=== PATIENT | male | born 1965 | race Caucasian/White ===

== ENCOUNTER 2023-11-14 16:46 | Emergency (ER) | payer BC, SELFPAY ==
--- NOTE | ~2023-11-14 | CT_ITS ---
EXAMINATION: CT SOFT TISSUE NECK WITH CONTRAST CLINICAL INFORMATION: Difficulty swallowing, concern for abscess COMPARISON: None. TECHNIQUE: Following the administration of 85 mL of Omnipaque 350 intravenous contrast, helical imaging was performed in the axial plane with generation of coronal and sagittal reformatted images. This CT examination was performed using dose optimization techniques as appropriate, variously including the following: *Automated exposure control. *Adjustment of mA and/or kV according to patient size (this includes techniques or standardized protocols for targeted exams where dose is matched to indication/reason for exam; i.e. extremities or head). *Use of iterative reconstruction technique. DLP: 381 mGy-cm. FINDINGS: There is asymmetric enlargement and heterogeneous hyperenhancement of the left palatine tonsil suggestive of acute palatine tonsillitis. There is a thinly septated, lobulated peripherally enhancing fluid collection suspicious for a left peritonsillar abscess effacing the left glossotonsillar sulcus, inferior left parapharyngeal fat, and extending to the left base of tongue, measuring 2.9 x 2.6 x 3.1 cm. There is soft tissue thickening and enhancement along the left lateral oropharyngeal wall and left nasopharyngeal soft tissues, compatible with pharyngitis. Pharyngitis/phlegmon largely effaces the left vallecula. The abscess causes mass effect and rightward displacement of an edematous soft palate. There is mild narrowing of the oropharyngeal airway. Myositis and phlegmon along the left posterior floor of mouth. There is stranding/cellulitic changes within the left submandibular triangle, anterior cervical space, and left carotid space with asymmetric thickening of the left platysma. The left submandibular gland is enlarged and edematous suggestive of secondary sialoadenitis. Asymmetric increased number of reactive nonpathologic size criteria left cervical chain lymph nodes. Medialization of the right aryepiglottic fold with prominence of the right piriform sinus and right lateral ventricle can be correlated for right-sided vocal cord paresis/paralysis. Dependent retention cysts in the maxillary sinuses and left sphenoid sinus. No mastoid effusion. The temporomandibular joints are normal. The right submandibular and parotid glands are normal. The thyroid gland is normal. Partially imaged centrilobular and paraseptal emphysema. Normal opacification of the major neck vessels. Mild cervical spondylosis. The imaged portions of the brain parenchyma are unremarkable. 6 mm exophytic dermal-based lesion arising from the left supraorbital frontal scalp can be correlated with direct inspection. CT/CT soft tissue neck w IV con IMPRESSION: 1. Findings compatible with acute left-sided palatine tonsillitis complicated by 2.9 x 2.6 x 3.1 cm peritonsillar abscess and associated cellulitic changes within the deep left neck. Secondary sialoadenitis of the left submandibular gland. Mild reactive left cervical chain lymph nodes. 2. Medialization of the right aryepiglottic fold with prominence of the right pyriform sinus and right laryngeal ventricle can be correlated for right-sided vocal cord paresis/paralysis. 3. 6 mm exophytic dermal-based lesion arising from the left supraorbital frontal scalp can be correlated with direct inspection. Electronically signed by: Marleni Aj MD 11/14/2023 09:18 PM EDT
[2023-11-14 17:24] VITALS: BP 156/95; PULSE 90; RESP 16; TEMP 37.1; O2SAT 96; BMI 23.0
--- NOTE | 2023-11-14 17:32 | ED_ITS ---
HPI - General Adult General Chief complaint: Upper Respiratory Symptoms Stated complaint: sore throat/pain to swallow Time Seen by Provider: 11/14/23 18:18 Source: patient Mode of arrival: ambulatory Limitations: no limitations History of Present Illness ED Provider: augusta KYLE narrative: Patient is a 58-year-old male current smoker 1/2PPD presenting to the emergency department with complaint of sore throat and swelling to the left side of his neck since yesterday. He denies fever/chills/body aches. Reports significant difficulty swallowing and eating. Reports history of dental abscess in the past. Denies any discharge or drainage from the area. Is able to manage his secretions. He denies cough, shortness of breath, difficulty breathing. MD complaint: sore throat, neck swelling Onset (ago): day(s) Location: neck Severity: moderate Quality: burning and aching Pain Consistency: constant Exacerbating factors: eating Associated symptoms: denies other symptoms Treatments prior to arrival: other (Tylenol) Related Data Previous Rx's ?Medication ?Instructions ?Recorded clindamycin HCl 300 mg capsule 300 mg PO TID #30 caps 11/14/23 dexamethasone 4 mg tablet 4 mg PO BID #6 tabs 11/14/23 Allergies Allergy/AdvReac Type Severity Reaction Status Date / Time aspirin Allergy Rash Verified 11/14/23 17:26 ibuprofen [From Motrin] Allergy Rash Verified 11/14/23 17:26 Penicillins Allergy Anaphylaxis Verified 11/14/23 17:25 Review of Systems 2 Review of Systems: As per HPI. Yes all other systems are reviewed and are negative Constitutional: Constitutional: Reports as per HPI [facility] Social History Social History Advance Directives: No Advance Directives Information Provided: No Do you have a plan to hurt others: No Plan Physical Exam ED Vital Signs: Vital Signs - 24 hr 11/14/23 17:24 11/14/23 22:55 11/14/23 23:08 Temperature 98.7 F 98.3 F 98.3 F Pulse Rate 90 98 98 Respiratory Rate 16 18 18 Blood Pressure 156/95 H 145/88 H 145/88 H Pulse Oximetry 96 96 96 Oxygen Delivery Method Room Air Room Air Room Air BMI result Body Mass Index 23.0 Vital signs have been reviewed and appear to be correct. Blood pressure elevated. Heart rate normal. Respiratory rate normal. Temperature normal. Oxygen saturation normal. Const General: cooperative, healthy appearing and no acute distress Orientation/consciousness: oriented to person, oriented to place, oriented to time and patient oriented x3 Limitations: no limitations HENMT Head: Yes normocephalic and Yes atraumatic Ears: external ears normal General nose exam: Normal external nose present Face and sinus: Yes face symmetric Mouth: Normal oral and palatal mucosa present, oropharynx normal, moist mucous membranes, no drooling, muffled voice, no trismus and No restricted motion Throat: Yes uvula midline and Yes peritonsillar mass (left) Eyes Pupils: Equal, round and reactive pupils present Neck Neck: Yes normal visual inspection, Yes supple and Yes other (left sided neck swelling) Neck images: 2 1. swelling, firm Resp Effort & Inspection: normal respiratory effort and able to speak in complete sentences Auscultation: clear to auscultation bilaterally Cardio Rate: regular rate Rhythm: regular rhythm Heart sounds: S1 normal heart sound present and S2 normal heart sound present GI Palpation (GI): Soft to palpation and nontender Auscultation: normoactive bowel sounds General: Yes no CVA tenderness Back/Spine/Pelvis Back: no CVA tenderness Skin General skin exam: elasticity normal and turgor normal Neuro General: oriented to person, oriented to place, oriented to time, patient oriented x3, moves all extremities, no focal motor deficits and CN's II-XI intact bilaterally Cranial nerves: Yes Equal, round and reactive pupils present Cognition (Neuro): normal cognition Extrem General: Yes full ROM, Yes no pedal edema and Yes no calf tenderness Psych Mental Status: mental status grossly normal Affect: normal affect Thought process: Normal thought process present Course Course Course Narrative: RME: 58-year-old male presents to ED for sore throat since yesterday without coughing, drooling, chest pain, shortness of breath. Patient has severe gag reflex not able to see posterior oral cavity. SARs strep ordered Reevaluation(s) Reevaluation #1: Patient received in sign-out at change of shift pending CT imaging and disposition. Patient has an up to 2.9 cm peritonsillar abscess. I went to evaluate the patient myself, view of the abscess and attempt needle aspiration myself. I explained to the patient that antibiotics and steroids alone would likely not completely treat this infection as there was a large abscess in the area. The patient states that he has a terrible gag reflex, he is unwilling to attempt incision and drainage or needle aspiration? without knocked me out. ? I explained to the patient that we do not have ear nose and throat specialty available to perform needle aspiration or incision and drainage in the OR with sedation. There is significant risk if attempted do this without ENT backup. I discussed this with the patient, he is willing to be transferred to have this done possibly under sedation but he is adamantly refusing to attempt this without sedation at this time. Page placed to [facility]. I did order clindamycin and dexamethasone, the patient is pen allergic Time: 21:45 Reevaluation #2: I received a call back from [facility] and discussed with Dr. Mindi Dos Santos, ear nose and throat specialty. After discussing the patient's case, the patient is able to manage all of the secretions, he is able to lie supine comfortably, there is no immediate concern for airway impingement. The patient can be discharged and will follow up with her office tomorrow morning. She gave me the office number to call of [phone] and the patient can be seen tomorrow. I was asked to provide the patient with a copy of the disc for his CT scan to bring to his appointment. I discussed this with the patient, he is comfortable with discharge at this time. I did give him return precautions to go directly to the nearest hospital immediately if he is having difficulty managing secretions or difficulty breathing Time: 22:19 Medications Administered Discontinued Medications Generic Name Dose Route Start Last Admin Trade Name Freq PRN Reason Stop Dose Admin Dexamethasone Sodium Phosphate 10 mg 11/14/23 21:47 11/14/23 22:02 Dexamethasone Sod Phosphate 10 Mg/Ml Vial IVPUSH 11/14/23 21:48 10 mg ONCE ONE Administration Clindamycin Phosphate 300 mg in 50 mls @ 100 mls/hr 11/14/23 21:47 11/14/23 22:36 Cleocin IV 11/14/23 22:16 Infused ONCE ONE Infusion Iohexol 85 ml 11/14/23 20:53 11/14/23 20:53 Iohexol 350 Mg/Ml 100 Ml Infus..Btl IV 11/14/23 20:54 85 ml ONCE ONE Administration Lidocaine HCl 5 ml 11/14/23 21:21 11/14/23 22:05 Lidocaine Hcl 1 % Mpf 5 Ml Vial INFILTRATI 11/14/23 21:22 Not Given ONCE ONE Lidocaine HCl 1 appl 11/14/23 21:21 11/14/23 22:05 Lidocaine Hcl 4 % [id number] 4 Ml TOPICAL 11/14/23 21:22 Not Given ONCE ONE Morphine Sulfate 2 mg 11/14/23 18:25 11/14/23 19:16 Morphine Sulfate 2 Mg/Ml Cartridge IVPUSH 11/14/23 18:26 2 mg ONCE ONE Administration Protocol Medical Decision Making Medical Decision Making [facility] Narrative: Patient is a 58-year-old male current smoker 1/2PPD presenting to the emergency department with complaint of sore throat and swelling to the left side of his neck since yesterday. On exam patient is awake, A+Ox3, BP elevated, VS otherwise WNL, afebrile, normal neurological exam without focal deficits, physical exam findings as above. Given reported symptoms and physical exam findings, initial differential includes [employer]PA, malignancy/mass, viral illness, strep pharyngitis. Strep negative. Viral serology and labs pending. Patient signed out to BREN Arellano pending labs and CT results. Differential Diagnosis Differential Diagnoses: The differential diagnosis associated with the presentation includes As per [facility] Admission/Observation Consideration of admission/observation: Escalation of care including admission/observation considered Patient would be admitted to the hospital/transferred if his work up has any findings where hospital admission was appropriate and his clinical presentation warranted hospital admission. Lab Data [facility] Lab Attestation statement: I reviewed the patient's lab results. Strep negative. 11/14/23 19:23 11/14/23 19:23 Labs: Lab Results 11/14/23 11/14/23 Range/Units 17:44 19:23 WBC 19.1 H (4.8-10.8) X10*3/uL RBC 4.79 (4.60-5.80) X10*6/uL Hgb 16.4 (14.0-18.0) g/dl Hct 45.5 (42.0-52.0) % MCV 95.0 (80.0-98.0) fL MCH 34.2 H (27.0-33.0) pg MCHC 36.0 (31.0-36.0) g/dl RDW 12.8 (11.0-16.0) % Plt Count 292 (160-400) X10*3/uL MPV 8.7 L (9.4-12.4) fL Immature Gran % (Auto) Cancelled Neut % (Auto) Cancelled Lymph % (Auto) Cancelled [place] % (Auto) Cancelled Eos % (Auto) Cancelled Baso % (Auto) Cancelled Lymph # (Auto) Cancelled [place] # (Auto) Cancelled Eos # (Auto) Cancelled Baso # (Auto) Cancelled Abs Immat Gran (auto) Cancelled Absolute Neuts (auto) Cancelled Absolute Nucleated RBC 0.000 (0.0-0.012) X10*3/uL Nucleated RBC % (auto) 0.0 (0.0-0.2) /100WBC Neutrophils % (Manual) 73 (45-73) % Band Neutrophils % 9 H (3-5) % Lymphocytes % (Manual) 10 L (20-40) % Monocytes % (Manual) 8 (2-11) % Abs Neuts (Manual) 15.7 H (2.0-8.3) X10*3/uL Lymphocytes # (Manual) 1.9 (1.2-4.9) X10*3/uL Monocytes # (Manual) 1.5 H (0.1-1.2) X10*3/uL Platelet Estimate NORMAL (NORMAL) Plt Morphology Comment NORMAL RBC Morphology NORMAL Smear Tech's Comments MANUAL DIFF ESR 38 H (0-15) MM/HR Sodium 138 (135-145) mmol/L Potassium 3.5 (3.3-5.1) mmol/L Chloride 105 (96-108) mmol/L Carbon Dioxide 23 (22-29) mmol/L Anion Gap 14 (12-20) BUN 12 (9-16) mg/dL Creatinine 0.87 (0.5-1.4) mg/dL Estim Creat Clear Calc 96.7 Estimated GFR > 60 Random Glucose 97 (60-115) mg/dL Calcium 10.4 H (8.4-10.2) mg/dL Total Bilirubin 1.0 (0.0-1.0) mg/dL AST 15 (5-37) U/L ALT 18 (0-40) U/L Alkaline Phosphatase 105 (39-117) U/L C-Reactive Protein 18.16 H (< or = 0.50) mg/dL Total Protein 8.2 H (6.5-8.0) g/dL Albumin 4.3 (3.5-5.0) g/dL Influenza Type A (PCR) NEGATIVE (Negative) Influenza Type B (PCR) NEGATIVE (Negative) RSV RNA Qual (PCR) NEGATIVE (Negative) SARS-CoV-2 RNA (RT-PCR) NEGATIVE (Negative) S. pyogenes GrpA ROSANNA Negative (Negative) External Record Review External record reviewed: Inpatient record, Office record and Outpatient record Discharge Plan Discharge Clinical Impression: Abscess, peritonsillar Patient Disposition: Home, Self-Care Instructions: Peritonsillar Abscess (ED) Additional Instructions: You have an abscess in the back of your throat called a peritonsillar abscess. Take dexamethasone twice daily for the next 3 days. Take clindamycin 3 times daily for the next 10 days Call the office of Dr. Mindi Dos Santos at [phone] tomorrow morning around 9:00 a.m. You should be able to get an appointment tomorrow. Bring the copy of the disc that you are provided Return to the nearest emergency department as soon as possible if you are unable to manage her secretions or having difficulty breathing Prescriptions: New clindamycin HCl 300 mg capsule 300 mg PO TID Qty: 30 0RF dexamethasone 4 mg tablet 4 mg PO BID Qty: 6 0RF Interventions: ED Discharge Assessment Last Done: 11/14/23 23:08 Discharge Date/Time: 11/14/23 23:08 Print Language: Gambian
[2023-11-14 18:07] LABS: IDNOW Serial# 08D9AD1C; Strep A Nucleic Acid Negative (Negative)
[2023-11-14 18:43] LABS: Influenza A PCR NEGATIVE (Negative); Influenza B PCR NEGATIVE (Negative); Resp Syncy Virus RNA Qual PCR NEGATIVE (Negative); SARS COV2 PCR INHOUSE NEGATIVE (Negative)
[2023-11-14] MEDS: Morphine Sulfate 2 MG/ML CARTRIDGE IVPUSH (19:16)
[2023-11-14 19:31] LABS: Hematocrit 45.5 % (42.0-52.0); Hemoglobin 16.4 g/dl (14.0-18.0); Mean Corpuscular Hemoglobin 34.2 pg (27.0-33.0); Mean Platelet Volume 8.7 fL (9.4-12.4); Platelet Count 292 X10*3/uL (160-400); Red Blood Count 4.79 X10*6/uL (4.60-5.80); Red Cell Distribution Width 12.8 % (11.0-16.0); White Blood Count 19.1 X10*3/uL (4.8-10.8)
[2023-11-14 19:47] LABS: Alanine Aminotransferase 18 U/L (0-40); Albumin Level 4.3 g/dL (3.5-5.0); Alkaline Phosphatase 105 U/L (39-117); Anion Gap 14 (12-20); Aspartate Amino Transferase 15 U/L (5-37); Blood Urea Nitrogen 12 mg/dL (9-16); C Reactive Protein 18.16 mg/dL (< or = 0.50); Calcium 10.4 mg/dL (8.4-10.2); Carbon Dioxide 23 mmol/L (22-29); Chloride 105 mmol/L (96-108); Creatinine Clr Calc Pharmacy 96.7; Estimated Glomerular Filt Rate > 60; Glucose Random 97 mg/dL (60-115); Potassium 3.5 mmol/L (3.3-5.1); Sodium 138 mmol/L (135-145); Total Protein 8.2 g/dL (6.5-8.0)
[2023-11-14 20:11] LABS: SLIDE REVIEW MANUAL DIFF
[2023-11-14 20:16] LABS: Band Neutrophils Percent 9 % (3-5); Lymphocytes Absolute Manual 1.9 X10*3/uL (1.2-4.9); Lymphocytes Percent Manual 10 % (20-40); Monocytes Absolute Manual 1.5 X10*3/uL (0.1-1.2); Monocytes Percent Manual 8 % (2-11); Neutrophils Absolute Manual 15.7 X10*3/uL (2.0-8.3); Neutrophils Percent Manual 73 % (45-73); RBC Morphology NORMAL
[2023-11-14 20:18] LABS: Platelet Estimate NORMAL (NORMAL); Platelet Morphology Comment NORMAL
[2023-11-14 20:22] LABS: Erythrocyte Sedimentation Rate 38 MM/HR (0-15)
[2023-11-14] MEDS: iohexoL 350 MG/ML 100 ML INFUS..BTL 85 ML IV (20:53)
[2023-11-14] MEDS: Clindamycin Phosphate/D5W 300 MG/50 ML PIGGYBACK 100 MG IV (22:01)
[2023-11-14] MEDS: dexAMETHasone sod phosphate 10 MG/ML VIAL IVPUSH (22:02)
[2023-11-14 22:55] VITALS: BP 145/88; PULSE 98; RESP 18; TEMP 36.8; O2SAT 96
[2023-11-14 23:08] VITALS: BP 145/88; PULSE 98; RESP 18; TEMP 36.8; O2SAT 96
== END 2023-11-14 23:08 | disposition home or self-care (01) ==
PROVIDERS: Physician Assistant; Registered Nurse Emergency; Emergency Provider Internal Medicine
DX: J36 Peritonsillar abscess (principal); R13.10 Dysphagia, unspecified; M54.2 Cervicalgia; F17.210 Nicotine dependence, cigarettes, uncomplicated; Z03.818 Encounter for observation for suspected exposure to other biological agents ruled out; Z79.899 Other long term (current) drug therapy
CPT/HCPCS: 0241U; 36415; 70491; 80053; 85007; 85025; 85027; 85652; 86140; 87651; 96365; 96375; 99284; J0736; J1100; J2270; Q9967